=== PATIENT | female | born 2000 | race Two or more races ===

== ENCOUNTER 2021-01-16 16:15 | Outpatient (CLI) | payer OTHER | END 2021-01-16 17:39 | disposition home or self-care (01) | LOC: PRENATAL 16:15 | PROVIDERS: ATTEND Obstetrics & Gynecology Maternal & Fetal Medicine | DX: O26.843 Uterine size-date discrepancy, third trimester (principal); O36.8131 Decreased fetal movements, third trimester, fetus 1; O24.410 Gestational diabetes mellitus in pregnancy, diet controlled; O35.0XX1 Maternal care for (suspected) central nervous system malformation in fetus, fetus 1; Z36.89 Encounter for other specified antenatal screening; Z3A.34 34 weeks gestation of pregnancy ==

== ENCOUNTER 2021-02-17 15:08 | Inpatient (IN) | payer OTHER ==
[~2021-02-17] VITALS: Ht 157.5 cm; Wt 67.6 kg
[2021-02-17] MEDS ORDERED: PRENATAL CAPLE1 EAC1 PO (15:40)
[2021-02-17] MEDS ORDERED: METFORMIN HCL500 MG PO (15:40)
== END 2021-02-19 16:47 | disposition home or self-care (01) | DRG 807 ==
LOC: OB/GYN 15:08 → LDR 15:08 → OB/GYN 17:18
PROVIDERS: ADMIT Obstetrics & Gynecology; ATTEND Obstetrics & Gynecology
PROC: 10E0XZZ Delivery of Products of Conception, External Approach (ICD-10-PCS; principal; 2021-02-17)
PROC: 4A1HXFZ Monitoring of Products of Conception, Cardiac Rhythm, External Approach (ICD-10-PCS; 2021-02-17)
DX: O80 Encounter for full-term uncomplicated delivery (principal); Z37.0 Single live birth; Z3A.38 38 weeks gestation of pregnancy